=== PATIENT | female | born 1970 | race American Indian/Alaskan Native ===

== ENCOUNTER 2017-09-19 13:43 | Outpatient (CLI) | payer BC ==
--- NOTE | 2017-09-19 16:01 | MMO ---
SCREENING MAMMOGRAPHY 09/19/17 COMPARISON: 08/30/16, 10/15/14, 05/06/13. HISTORY: Screening. FINDINGS: The patient's mammogram is interpreted with the assistance of computer aided detection. Scattered fi broglandular densities are present. Benign calcification is seen bilaterally. No dominant mass, arch itectural distortion. No concerning microcalcifications. IMPRESSION: BI-RADS 2: Benign Finding(s) Routine annual screening mammography (for women over age 40). POS: [facility]
== END 2017-09-19 13:44 | disposition home or self-care (01) ==
LOC: SCSMAMMO 13:43
PROVIDERS: ATTEND Family Medicine
DX: Z12.31 Encounter for screening mammogram for malignant neoplasm of breast (principal)
CPT/HCPCS: 77067; G0202